=== PATIENT | male | born 1960 ===

== ENCOUNTER → 2018-03-13 21:56 | Outpatient (REF) | payer OTHER, SELFPAY ==
[2018-03-13 22:29] LABS: Add Manual Diff / Slide Review NO; Basophils Absolute Auto 0 /uL (0-100); Basophils Percent Auto 1.1 % (0-2); Eosinophils Absolute Auto 100 /uL (0-450); Eosinophils Percent Auto 1.6 % (2-4); Hematocrit 44.5 % (41-53); Lymphocytes Absolute Auto 900 /uL (1100-4500); Lymphocytes Percent Auto 22.5 % (25-40); Mean Corpuscular HGB Conc 33.7 % (30-36); Mean Corpuscular Hemoglobin 30.4 PG (26-34); Mean Corpuscular Volume 90.4 fL (80-100); Monocytes Absolute Auto 300 /uL (0-900); Monocytes Percent Auto 6.8 % (3-14); Neutrophils Absolute Auto 2600 /uL (1500-7000); Platelet Count 203 X10^3/uL (150-400); Red Blood Cell Count 4.93 X10^6/uL (4.5-5.9); Red Cell Distribution Width 13.1 % (11.6-14.8); White Blood Cell Count 3.8 X10^3/uL (4.5-11.0)
[2018-03-13 23:58] LABS: HEMOLYSIS < 15 (0-50)
[2018-03-14 00:10] LABS: Alanine Aminotransferase 65 IU/L (21-72); Albumin 4.2 g/dL (3.5-5.0); Albumin Globulin Ratio 1.5 (1.0-2.8); Alkaline Phosphatase 87 U/L (38-126); Aspartate Aminotransferase 44 IU/L (17-59); Bilirubin Total 0.4 mg/dL (0.2-1.3); Blood Urea Nitrogen 18 mg/dL (9-20); Calcium 9.4 mg/dL (8.4-10.2); Carbon Dioxide 28 mmol/L (22-32); Chloride 107 mmol/L (98-107); Estimated Glomerular Filt Rate > 60.0 mL/min (>60); Globulin 2.8 g/dL (1.7-4.1); Glucose 106 mg/dL (70-100); Potassium 4.6 mmol/L (3.4-5.1); Sodium 142 mmol/L (137-145)
[2018-03-14 00:36] LABS: Thyroid Stimulating Hormone 0.81 uIU/mL (0.47-4.68)
[2018-03-14 02:56] LABS: C-Reactive Protein Quant < 0.5 mg/dL (<1.0)
[2018-03-14 03:04] LABS: Hemoglobin A1C% w Est Avg Glu 5.4 % (4.0-6.0)
[2018-03-14 03:09] LABS: Free T3, Triiodothyronine Free 4.72 pg/mL (2.77-5.27); Free T4, Direct Thyroxine 1.25 ng/dL (0.78-2.19)
[2018-03-14 04:06] LABS: Cortisol AM (Before 10AM) 12.3 ug/dL (4.46-22.7)
[2018-03-15 19:11] LABS: Sex Hormone Binding Globulin 29 nmol/L (22-77)
[2018-03-15 20:26] LABS: Estradiol 34 pg/mL (< 40)
[2018-03-16 11:24] LABS: Lipoprofile NMR SEE SEPERATE REPORT
[2018-03-16 14:26] LABS: Dehydroepiandrosterone Sulfate 129 mcg/dL (38-313)
[2018-03-17 08:41] LABS: Testosterone Free 404 ng/dL (250-1100); Testosterone Total 69.6 pg/mL (35.0-155.0)
== END ==
LOC: LAB 21:56
PROVIDERS: Visit Provider Naturopath
DX: E78.5 Hyperlipidemia, unspecified (principal); Z13.89 Encounter for screening for other disorder; R63.5 Abnormal weight gain; R53.83 Other fatigue; R68.82 Decreased libido
CPT/HCPCS: 36415; 80053; 82533; 82627; 82670; 83036; 83704; 84270; 84402; 84403; 84439; 84443; 84481; 85025; 86140